=== PATIENT | male | born 1990 | race African-American/Black ===

== ENCOUNTER 2020-06-08 23:01 | Emergency (ER) | payer MEDICAID ==
[~2020-06-08] VITALS: Ht 170.2 cm; Wt 84.0 kg
[2020-06-09 00:06] LABS: BASOPHILS % 0.7 % (0.0-2.0); EOSINOPHILS % 2.3 % (0.0-5.0); HEMOGLOBIN. 13.4 g/dL (14.0-18.0); LYMPHOCYTES % 36.7 % (20.0-50.0); MEAN CORPUSCULAR HEMOGLOBIN 26.9 pg (28.0-32.0); MEAN PLATELET VOLUME 7.8 fl (7.4-10.4); MONOCYTES % 12.1 % (2.0-8.0); NEUTROPHILS % 48.2 % (40.0-76.0); PLATELET 370 x1000/uL (130-400); RED BLOOD CELL COUNT 4.99 mill/uL (4.7-6.1); RED CELL DISTRIBUTION WIDTH 14.7 % (11.6-14.6)
[2020-06-09 00:09] LABS: CHLORIDE 112 mEq/L (98-107)
[2020-06-09 00:14] LABS: ETHANOL BLOOD < 10 mg/dL
[2020-06-09 00:43] LABS: CLARITY URINE CLEAR (CLEAR); COLOR URINE YELLOW (YELLOW); KETONES URINE NEGATIVE (NEGATIVE); LEUKOCYTE ESTERASE URINE NEGATIVE (NEGATIVE); NITRITE URINE NEGATIVE (NEGATIVE); OCCULT BLOOD URINE NEGATIVE (NEGATIVE); PROTEIN URINE NEGATIVE (NEGATIVE); SPECIFIC GRAVITY URINE 1.025 (1.005-1.030)
[2020-06-09 00:54] LABS: *AMPHETAMINES SCREEN URINE PRESUMTIVE POSITIVE (NEGATIVE); *BARBITURATES SCREEN URINE NEGATIVE (NEGATIVE); *BENZODIAZEPINES SCREEN URINE NEGATIVE (NEGATIVE); *COCAINE SCREEN URINE NEGATIVE (NEGATIVE); METHADONE URINE SCREEN NEGATIVE (NEGATIVE)
[2020-06-09 00:55] LABS: CANNABINOID URINE SCREEN PRESUMTIVE POSITIVE (NEGATIVE); OPIATES URINE SCREEN NEGATIVE (NEGATIVE); PHENCYCLIDINE URINE SCREEN PRESUMTIVE POSITIVE (NEGATIVE)
[2020-06-09 01:10] VITALS: BP 135/90
== END 2020-06-09 01:31 | disposition home or self-care (01) ==
LOC: ER 23:01 → EDBD 23:01 → ER 06-09 01:31
DX: T43.621A Poisoning by amphetamines, accidental (unintentional), initial encounter (principal); F16.10 Hallucinogen abuse, uncomplicated; Y92.488 Other paved roadways as the place of occurrence of the external cause
CPT/HCPCS: 36415; 80053; 80305; 80320; 81003; 84484; 85025; 93005; 99285; G0480

== ENCOUNTER 2020-09-11 12:42 | Emergency (ER) | payer MEDICAID ==
[~2020-09-11] VITALS: Ht 182.9 cm; Wt 96.0 kg
[2020-09-11] MEDS ORDERED: SODIUM CHLORIDE 0.9% 1,000 ML IV ONE (13:00)
[2020-09-11 13:05] VITALS: BP 134/88
== END 2020-09-11 13:11 | disposition left against medical advice (07) ==
LOC: ER 12:47
DX: R41.82 Altered mental status, unspecified (principal); F19.10 Other psychoactive substance abuse, uncomplicated
CPT/HCPCS: 93005; 99283; J7030

== ENCOUNTER 2021-10-12 10:14 | Emergency (ER) | payer MEDICAID ==
[~2021-10-12] VITALS: Ht 177.8 cm; Wt 80.0 kg
[2021-10-12] MEDS ORDERED: KETOROLAC 60MG/2ML VIAL IM ONE (10:45)
[2021-10-12] MEDS ORDERED: METHOCARBAMOL 500MG TABLET PO ONE (10:45)
[2021-10-12 12:05] VITALS: BP 102/59
[2021-10-12] MEDS ORDERED: NAPR-681 MT (12:16)
== END 2021-10-12 12:54 | disposition home or self-care (01) ==
LOC: ER 10:14
DX: S39.012A Strain of muscle, fascia and tendon of lower back, initial encounter (principal); X50.0XXA Overexertion from strenuous movement or load, initial encounter; X50.3XXA Overexertion from repetitive movements, initial encounter; Y93.89 Activity, other specified; Y92.89 Other specified places as the place of occurrence of the external cause; Y99.0 Civilian activity done for income or pay
CPT/HCPCS: 96372; 99283; J1885

== ENCOUNTER 2021-10-21 16:13 | Emergency (ER) | payer MEDICAID ==
[~2021-10-21] VITALS: Ht 172.7 cm; Wt 66.0 kg
[~2021-10-21 16:13] MED LIST: NAPR-681 MT
[2021-10-21 16:17] VITALS: BP 154/95
[2021-10-21] MEDS ORDERED: SODIUM CHLORIDE 0.9% 1,000 ML IV ONE (16:45)
== END 2021-10-21 17:37 | disposition left against medical advice (07) ==
LOC: ER 16:13
DX: T40.601A Poisoning by unspecified narcotics, accidental (unintentional), initial encounter (principal); R41.82 Altered mental status, unspecified; Y92.89 Other specified places as the place of occurrence of the external cause; F19.10 Other psychoactive substance abuse, uncomplicated; F12.90 Cannabis use, unspecified, uncomplicated
CPT/HCPCS: 99283; J7030

== ENCOUNTER 2022-04-24 03:08 | Emergency (ER) | payer MEDICAID ==
[~2022-04-24] VITALS: Ht 170.2 cm; Wt 80.0 kg
[2022-04-24] MEDS ORDERED: PROT40 MT (04:07)
[2022-04-24] MEDS ORDERED: VISCOUS LIDOCAINE 2% 15 ML UDC PO ONE (04:15)
[2022-04-24] MEDS ORDERED: MAGNESIUM/ALUMINUM HYDROXIDE/SIMETHICONE 30ML UDC PO ONE (04:15)
[2022-04-24 04:38] VITALS: BP 124/74
== END 2022-04-24 04:39 | disposition home or self-care (01) ==
LOC: ER 03:08
DX: K29.20 Alcoholic gastritis without bleeding (principal); F10.10 Alcohol abuse, uncomplicated; Y90.9 Presence of alcohol in blood, level not specified
CPT/HCPCS: 99283

== ENCOUNTER 2022-11-10 17:57 | Emergency (ER) | payer MEDICAID, OTHER ==
[~2022-11-10] VITALS: Ht 175.3 cm; Wt 89.0 kg
[~2022-11-10 17:57] MED LIST changes: +PROT40 MT
[2022-11-10 17:59] VITALS: BP 131/96
== END 2022-11-10 22:41 | disposition left against medical advice (07) ==
LOC: ER 18:12
DX: Z53.21 Procedure and treatment not carried out due to patient leaving prior to being seen by health care provider (principal)